=== PATIENT | female | born 1940 ===

== ENCOUNTER 2022-04-11 08:15 | Inpatient (IN) | payer OTHER ==
[~2022-04-11] VITALS: Ht 167.6 cm; Wt 84.8 kg
[2022-04-11] MEDS ORDERED: LOSART PO (11:10)
[2022-04-11] MEDS ORDERED: GLUMETZA500 MG PO (11:10)
[2022-04-11] MEDS ORDERED: IBU800 MG PO (11:11)
[2022-04-11] MEDS ORDERED: LEVO-T50 MCG PO (11:13)
[2022-04-11] MEDS ORDERED: CRESTOR5 MG PO (11:13)
[2022-04-11] MEDS ORDERED: [UNRECOGNIZED DRUG - OTHER] PO (11:14)
[2022-04-14] MEDS ORDERED: GABAPENTIN300 M2 (08:43)
[2022-04-14] MEDS ORDERED: DICLOFENAC SOD100 GM (08:43)
[2022-04-14] MEDS ORDERED: DILTIAZEM HCL60 MG (08:43)
[2022-04-14] MEDS ORDERED: LOSARTAN-HCTZ1 EAC1 (08:44)
[2022-04-16] MEDS ORDERED: INTEGRA PLUS C1 EACH PO (06:41)
[2022-04-16] MEDS ORDERED: OXYC1TAB9 PO (06:41)
[2022-04-16] MEDS ORDERED: BACTRIM DS TAB1 EACH PO (06:41)
[2022-04-16] MEDS ORDERED: XARELTO10 MG PO (06:41)
== END 2022-04-16 14:58 | DRG 470 ==
LOC: ADM 08:15 → SURH 04-14 06:33 → O/R 04-14 06:33 → SURG 04-14 07:00 → EDSTATUS 04-14 08:15 → SURG 04-14 08:15 → CIR.AMB 04-14 08:15 → SURH 04-14 13:03
PROVIDERS: ADMIT Orthopaedic Surgery Sports Medicine; ATTEND Orthopaedic Surgery Sports Medicine
PROC: 0SRC0J9 Replacement of Right Knee Joint with Synthetic Substitute, Cemented, Open Approach (ICD-10-PCS; principal; 2022-04-14 07:00)
DX: M17.11 Unilateral primary osteoarthritis, right knee (principal); Z96.651 Presence of right artificial knee joint; I10 Essential (primary) hypertension; E78.5 Hyperlipidemia, unspecified; E03.9 Hypothyroidism, unspecified; Z20.822 Contact with and (suspected) exposure to COVID-19